=== PATIENT | female | born 1990 | race Caucasian/White ===

== ENCOUNTER 2018-12-23 11:53 | Emergency (ER) | payer MEDICAID, SELFPAY ==
[2018-12-23 11:54] VITALS: BP 116/69; PULSE 97; RESP 17; TEMP 36.2; O2SAT 99; BMI 28.8
--- NOTE | 2018-12-23 12:57 | RAD_ITS ---
STUDY: X-RAY - PELVIS AND LEFT HIP REASON FOR EXAM: Female, 28 years old. Chronic left hip pain. No known injury. TECHNIQUE: 3 views of the pelvis and hip. COMPARISON: None. FINDINGS: There is a non-specific bowel gas pattern. Tubal ligation clips. Normal bilateral iliac wings, sacroiliac joints and visualized sacrum. Normal bilateral superior and inferior pubic rami. Normal pubic symphysis. Normal bilateral ischial tuberosities. Normal visualized femoral head. Normal acetabulum. Normal hip joint. RAD/HIP, UNI W/ Pelvis 2-3 Views IMPRESSION: No acute finding. Electronically Signed: Que Allison MD at 13:19 EDT , Service support ,
--- NOTE | 2018-12-23 12:58 | ED.VISSUMM ---
- ER Visit Summary Date of Service: 12/23/18 Chief Complaint: Atraumatic left hip pain History of Present Illness: The patient is a 28 F no significant past medical history. States she is had atraumatic left hip pain intermittent for last 2 years. At times it flares up at times is not bad. She denies any fever or chills. No prior hip surgery. Sometimes when she walks it seems aggravated. States one time she had x-rays done at [facility] which they stated that was unremarkable. She is never had an MRI. Physical Examination: Young female no acute distress. Vital signs stable afebrile. H EENT exam unremarkable. Lungs clear to auscultation. Heart regular rhythm no murmur. Abdomen soft nontender. Extremities moves all 4. Calves are nontender without edema or cords. She is moving all 4 extremities. She has full range of motion of both hips and knees ankles and feet. Dorsi plantarflexion intact. Left hip is not red or swollen. There is no signs of bony deformity or dislocation. Back the spine and SI joints are nontender. Neurologically she is awake and alert. Has normal motor strength and sensation all extremities. Test Results: Left hip and pelvis x-rays, 3 views, shows no acute abnormality. Normal bony structures. I did go over the films with the patient and family. Emergency Department Course and Treatment: Acute on chronic left hip pain. Unremarkable exam. Treatment Plan: Repeat exam at 1342 no change. Tylenol Motrin for pain. Follow-up if not improving. May need advanced imaging. Disposition: Discharge Impression: Acute on chronic atraumatic left hip pain of uncertain etiology This note was generated with [employer] dictation software. It may contain incorrect words, spelling, and punctuation that were not noted in review of the chart prior to signing ED Disposition - Plan for ED Patient: Referrals: NOT,DEFINED [NON-STAFF] -
--- NOTE | 2018-12-23 13:42 | ED.DEP ---
ED Disposition - Plan for ED Patient: Disposition: Home or Assisted Living Referrals: Peterson Guzman MD [STAFF PHYSICIAN] - As soon as possible Additional Instructions: Tylenol and Motrin for pain. Follow-up with local physician if not improving. If not getting better he may need additional imaging. But your x-rays today were normal.
== END 2018-12-23 13:50 | disposition home or self-care (01) ==
PROVIDERS: Emergency Provider Emergency Medicine
DX: M25.552 Pain in left hip (principal); G89.29 Other chronic pain; Z72.0 Tobacco use
CPT/HCPCS: 73502; 99282

== ENCOUNTER → 2019-02-18 | Outpatient (CLI) | payer MEDICAID, SELFPAY ==
[2019-02-22 13:28] LABS: HPV Reflexed? NOT INDICATED
== END | disposition home or self-care (01) ==
LOC: LABSPEC 02-19 10:13
PROVIDERS: Visit Provider Obstetrics & Gynecology
DX: Z12.4 Encounter for screening for malignant neoplasm of cervix (principal)
CPT/HCPCS: 88175; G0145

== ENCOUNTER → 2019-03-11 10:46 | Outpatient (CLI) | payer MEDICAID, SELFPAY ==
--- NOTE | 2019-03-11 16:15 | EMB_PTH ---
PATIENT: MOY JUAREZ LOC: [facility] U#:[id number] AGE/SX: 34/F ROOM: RE03/11/[address]: Dr. Gavin Roberts MD : 1990 BED: DIS: SPEC #: [id number] RECD: 03/12/19 10:35 STATUS: MEI REMckenzie #: [id number] CHECO: 03/11/19 16:[address]: Gavin Roberts DEPT: SURGICAL PATHOLOGY RECD BY: Tyler Mccrary ENTERED: 03/12/19 12:23 SP TYPE: ENDOM BX/C ENDY DR: No Primary Care Phys Tissues: Endometrium, NOS Procedures: Surgery Specimen Level IV HEADER OPERATION: Endometrial biopsy PRE-OP DIAGNOSIS: N92.0 TISSUE SUBMITTED: Endometrial biopsy MICROSCOPIC DIAGNOSIS Endometrial biopsy: Proliferative endometrium. SJ:cinthia 03/13/19 MICROSCOPIC DESCRIPTION Slides are reviewed. GROSS DESCRIPTION Received in fixative is one container labeled with the patient's name and designated endometrial biopsy. The specimen consists of multiple irregular and elongated fragments of light pink-maurer soft tissue that in aggregate measure 2.5 x 2 x 0.2 cm. The specimen is totally submitted in one cassette. / AM:cinthia 03/12/19 TC:4 CPT: 00596
== END ==
PROVIDERS: Referring Provider Obstetrics & Gynecology; Visit Provider Obstetrics & Gynecology
DX: N92.0 Excessive and frequent menstruation with regular cycle (principal)
CPT/HCPCS: 88305

== ENCOUNTER 2019-03-31 08:37 | Day surgery (SDC) | payer MEDICAID, SELFPAY ==
[2019-03-26 16:16] LABS: Hematocrit 37.9 % (37-47); Hemoglobin 12.2 g/dL (12.0-15.0); Mean Corp Hgb Conc 32.2 g/dL (32-36); Mean Corpuscular Volume 86.9 fL (81-99); Mean Platelet Vol. 10.6 fl (6.2-12.0); Platelet Count 233 K/mm3 (150-450); RBC Distribution Width CV 13.2 % (11.6-14.6); RBC Distribution Width SD 41.9 fl (35.1-43.9); Red Blood Count 4.36 M/mm3 (4.2-5.4); White Blood Count 7.1 K/mm3 (4.4-11.0)
[2019-03-26 16:47] LABS: Thyroid Stim Hormone (TSH) 0.72 uIU/mL (0.358-3.74)
--- NOTE | 2019-03-30 13:08 | HP.PCM_ITS ---
History and Physical Date of Admission: 03/31/19 Surgical History and Physical Ana Zaldivar, a 28 year old female 3 0 2 0 3, presents for HTA, Hysteroscopy and D and C on March 31, 2019 at 2:30. -- Menorrhagia -- Extremely heavy menses since her last delivery. Pelvic ultrasound and endometrial biopsy OK. Had tubal for control. MEDICATIONS HISTORY: Patient is also takin. No Meds ALLERGIES: NKDA Infections - Chicken pox Illnesses - none Accidents - None Hospitalizations - see surgery Review of Systems: GENERAL - Denies fever, or chills SKIN - Denies skin changes EYES - Denies visual changes EARS - Denies difficulty hearing NOSE - Denies nasal congestion or bleeding MOUTH - Denies sore throat or difficulty swallowing NECK - Denies pain or swelling RESPIRATORY - Denies shortness of breath or wheezing CARDIOVASCULAR - Denies palpitations or chest pain GASTROINTESTINAL - Denies nausea, vomiting, diarrhea, constipation GENITOURINARY - Denies dysuria, frequency of urination, incontinence of urine MUSCULOSKELETAL - Denies joint or muscle pain NEUROLOGICAL - Denies localized numbness or weakness PSYCHIATRIC - Denies depression or anxiety ENDOCRINE - Denies heat or cold intolerance, weight loss or gain HEMATO-IMMUNOLOGIC - Denies excesive bleeding with cuts SOCIAL HISTORY: Alcohol Use - denies drinking Smoking - Smokes--advised to quit less than 1 ppd Diet - no special diet Lifestyle - moderate stress lifestyle and single Exercise - minimal Seat Belt Use - most of the time Employer - [employer]formerly [employer] Job Description - [employer] Illicit Drug Use - None Sexual Activity - ACTIVE [employer] Children Name(s) - Max (12), Berhane (16), Justine Baer(17) Control - Prior Tubal FAMILY HISTORY: non-contributory MENSTRUAL HISTORY: LMP Known?- YesAmount/Duration - 5 days, Regularity - Regular, Frequency - monthly days, LMP - 03/26/19, Age Onset Menarche - 14 PAST PREGNANCIES: Total Pregnancies - 5; Full Term Pregnancies - 3; Premature - 0; Abortions, Induced - 0; Abortions, Spontaneous - 1; Ectopics - 1; Multiple Births - 0; Living Children - 3 SURGICAL HISTORY: 1. 07/22/2012 (R) Hand Surgery 2. (L) Wrist Surgery x 2 3. 02/25/2011 Diagnostic lap, Rt fallopian tube ablation ; Dr. Katheryn Harris - ruptured ectopic 4. 11/05/2011 ; Blanca Patrick M.D. 5. 03/11/2014 LEEP ; Dr. Katheryn Harris 6. 06/26/2016 /tubal ; Gavin Roberts M.D. 7. 04/30/2015 ; Blanca Patrick M.D. PHYSICAL EXAM BP- 136/80 Sitting, Right arm, regular cuff Weight- 200 lbs Height- 66 inch BMI:32.35 CONSTITUTIONAL - NAD, well nourished, and well developed SKIN - No rash, lesions, or ulcers HEENT - Normocephalic, PERRLA, EOMI NECK - No nodes, no nuchal rigidity and thyroid normal size and texture LYMPH NODES - Palpation of lymph nodes in neck and groins within normal limits LUNGS - CTA x2 without wheezes, crackles or rales CARDIAC - Regular rate and rhythm without rubs, murmurs, or gallops BREAST - No dominant masses, no tenderness, no axillary adenopathy, no nipple discharge, no skin changes ABDOMEN - Without hepatosplenomegaly, distention, masses, rebound, or guarding; normal bowel sounds; no hernias EXTREMITIES - No edema or calf tenderness NEUROLOGICAL - Cranial nerves II-XII grossly intact PSYCHIATRIC - A and O to time, place, person, mood and affect External Genital Vagina - non-tender without lesions Urethra/Urethral Meatus - non-tender Bladder - non-tender Vagina - vaginal davis are pink and moist without loss of rugae and no evidence of atropy Cervix - without cervical motion tenderness and has normal size and features without evident lesions Uterus - multiparous size 6 cm & wt 75-125 g Adnexa - clear without masses or tenderness ASSESSMENT/PLAN: Menorrhagia Discussed options for treatment including OCPs, LARC, or ablation. Desires the ablation. Plan Dx H/S, D and C and HTA. Discussed RBAs and all questions answered.
[2019-03-31] VITALS (9 sets, daily range): BP systolic 84–119; BP diastolic 66–84; PULSE 51–81; RESP 14–16; TEMP 36.1–36.8; O2SAT 96–100; BMI 30.2
[2019-03-31 09:31] LABS: Internal QC Validated? YES +Cl - CLEAR BKGD; Pregnancy, Urine Negative Negative
[2019-03-31] MEDS: Lactated Ringers 1,000 ML 100 ML IV (09:41)
--- NOTE | 2019-03-31 10:35 | EMB_PTH ---
PATIENT: MOY JUAREZ LOC: [facility] [place] U#:[id number] AGE/SX: 28/F ROOM: RE03/31/[address]: Dr. Gavin Roberts MD : 1990 BED: DIS: 03/31/2019 SPEC #: [id number] RECD: 04/01/19 10:07 STATUS: MEI CHINEDU #: [id number] CHECO: 03/31/19 10:[address]: Gavin Roberts DEPT: SURGICAL PATHOLOGY RECD BY: Kezia Roman ENTERED: 04/01/19 11:01 [facility] TYPE: ENDOM BX/C ENDY DR: Out of [facility] Doctor Tissues: Endometrium, NOS Procedures: Surgery Specimen Level IV HEADER OPERATION: Hysteroscopy, D&C hydro ablation PRE-OP DIAGNOSIS: Menorrhagia TISSUE SUBMITTED: Endometrial curettings MICROSCOPIC DIAGNOSIS Endometrial curettings: Proliferative endometrium. SJ:carmen 04/02/19 MICROSCOPIC DESCRIPTION Slides are reviewed. GROSS DESCRIPTION Received is one container labeled with the patient name and designated endometrial curettings. The specimen consists of multiple irregular fragments of light maurer soft tissue that in aggregate measure 5.5 x 3 x 0.2 cm. The specimen is totally submitted in two cassettes. / AM:sp 04/01/19 TC: 4 CPT:55722
--- NOTE | 2019-03-31 11:56 | PCM.OPRPT ---
Report of Operation Date of Procedure: 03/31/19 Pre-Operative Diagnosis: Menorrhagia Post-Operative Diagnosis: Menorrhagia Surgery/Procedure Performed:: Diagnostic Hysteroscopy, Dilation and Curettage, Hydrothermal Ablation Description of Surgical Findings:: 8 cm endometrial cavity without polyps or fibroids Type of Anesthesia:: General - Endotracheal Anesthesiologist: Tarsha Thomson Estimated Blood Loss (mL): Minimal Fluids Replaced: Crystalloid Description of Procedure: Surgeon: Gavin Roberts MD, FACOG Indication: This is a 28 year old patient who has been having problems with extremely heavy menses. She had a prior tubal ligation. Conservative measures have not been helpful. Endometrial sampling was benign and pelvic ultrasound showed that ablation may be helpful. Pt has been counseled regarding the risks, benefits and alternatives of this procedure and all questions answered. She understands that only about half of patients will have amenorrhea after this procedure. Procedure: Patient taken to the operating room where after induction of general anesthesia the patient was prepped and draped in the usual sterile fashion. Bladder was drained of urine with a catheter. Anterior cervix grasped and cervix was dilated to about 17 [place]kin[place] size. Hysteroscopic hydrothermal ablation (HTA) unit was place in the cervix and the above findings were noted. HTA unit was removed and the uterus was gently curetted removing all contents. An HTA ablation cycle was then carried out at about 90 degrees Centigrade for 10 minutes with virtually no fluid loss during the procedure. After an appropriate cool down the HTA unit was removed with minimal bleeding noted. The patient tolerated the procedure well and was taken to the recovery room in satisfactory condition. Sponge, instruments and needle counts were all correct. There were no apparent complications of the surgery. Cefotan 2 gms IV was given prior to the procedure. Estimated Blood Loss: Minimal Specimen to Pathology: Endometrial Curettings Grafts/Implants Used: None - Complications None - Admit VTE Documentation VTE Present on Admission: Yes VTE Mechan Device Prophylaxis: SCD's
--- NOTE | 2019-03-31 11:59 | DCINST_ITS ---
Discharge Diet: No Restrictions Discharge Activity: Return to Normal Activity, May not drive while taking narcotic pain medications., May Shower, May Take a Tub Bath May resume sexual activity in: 4 weeks Call your doctor if you observe: Fever of 101 or Higher, Inability to urinate, Inability to have a bowel movement, Using more than one pad per hour Allergies/Adverse Reactions: Allergies No Known Allergies Allergy (Verified 03/24/19 14:11) Medications to take at Discharge Oxycodone [Oxyir] 5 mg PO Q6H PRN PRN 7 Days #10 tablet 03/31/19 Primary Care Physician: HARMONY SCHULTE [Other] Test Results: Test results from this visit will be discussed in further detail at your follow- up appointment, if applicable. Please Follow Up With: Gavin Roberts MD When: 2 to 3 weeks
== END 2019-03-31 14:00 | disposition home or self-care (01) ==
LOC: SDC 08:40 → AC 08:46
PROVIDERS: Anesthesiology; Referring Provider Obstetrics & Gynecology; Visit Provider Obstetrics & Gynecology
PROC: 0U5B8ZZ Destruction of Endometrium, Via Natural or Artificial Opening Endoscopic (ICD-10-PCS; CPT 58563; principal; 2019-03-31 10:20)
DX: N92.0 Excessive and frequent menstruation with regular cycle (principal); F17.200 Nicotine dependence, unspecified, uncomplicated
CPT/HCPCS: 00952; 58563; 36415; 81025; 84443; 85027; 86850; 86900; 86901; 88305; J7120; J2405

== ENCOUNTER 2023-05-13 18:09 | Emergency (ER) | payer MEDICAID, SELFPAY ==
[2023-05-13 18:10] VITALS: BP 135/88; PULSE 97; RESP 16; TEMP 36.7; O2SAT 100; BMI 28.0
--- NOTE | 2023-05-13 18:26 | CT_ITS ---
STUDY: CT ABDOMEN AND PELVIS WITHOUT CONTRAST REASON FOR EXAM: Female, 32 years old. Pain RADIATION DOSAGE (If Supplied By Facility): CTDIvol = ( 10.76 ) mGy, DLP = ( 540.48 ) mGycm TECHNIQUE: Transaxial images were obtained from the dome of the diaphragm to the symphysis pubis without oral contrast, and without intravenous contrast. Sagittal and coronal images were reconstructed. Individualized dose optimization techniques were used for this CT. COMPARISON: None. FINDINGS: The visualized lung bases are unremarkable. The visualized portions of the heart are within normal limits. Normal liver. Normal gallbladder and extrahepatic biliary system. Normal spleen. Normal pancreas. Normal bilateral adrenal glands. Normal right kidney. Normal left kidney. Normal visualized stomach. Normal small intestine. Normal colon. The appendix is visualized and appears normal. Normal abdominal aorta. Normal inferior vena cava. Normal retroperitoneum. Normal urinary bladder. Normal abdominal wall. Normal osseous structures. CT/Abdomen/Pelvis without Cont IMPRESSION: No evidence of acute intra-abdominal process or focal inflammation. Normal appendix. Electronically Signed: Paul Ruiz DO at 19:40 [facility] ,
--- NOTE | 2023-05-13 18:31 | EDS_ITS ---
HPI History of Present Illness Chief Complaint: Nausea/Vomiting Narrative Narrative: 32-year-old female who denies significant past medical history presents with nausea, vomiting, and back pain. She states that she was not sure if she had overdone it by doing her chores yesterday and developed lower back pain that somewhat worse with movement. She states that she was over at her mom's house, and had nausea and vomiting at least 3 times. When she was driving home, she did not feel quite right and states that her hands locked up and her knee on the left/lower leg also locked up. She had to thread puller and sit. This lasted for about 10 minutes. Additionally, she relates history that every morning she wakes up and has vomiting and this has been going on for the last month or longer. She is to have abdominal pain with this, but really does not. She also has loose stool in the morning. She was concerned because of her spasming of her hands locking up and of her left leg. PFSH PFSH Home Medications amoxicillin 875 mg-potassium clavulanate 125 mg tablet 1 tab PO Q12H #14 tabs 04/26/23 [Rx Last Taken Unknown] ondansetron 4 mg disintegrating tablet 4 mg PO Q6H PRN nausea and vomiting #15 tabs 05/13/23 [Rx Last Taken Unknown] Allergy/AdvReac Type Severity Reaction Status Date / Time No Known Allergies Allergy Verified 04/26/23 09:05 Social History Smoking Status: Current every day smoker tobacco type: cigarettes ROS ROS ED ROS Narrative Constitutional: No fever, no chills. HEENT: No sore throat. No neck pain. No loss of vision. No rhinorrhea. Cardiovascular: No chest pain. No palpitations. No pedal edema. Respiratory: No cough, no shortness of breath. Abdominal: No abdominal pain. Positive nausea and vomiting today. Later learned that she has been having nausea and vomiting every morning along with loose stools. Genitourinary: No dysuria. No hematuria. Musculoskeletal: Muscle spasms of bilateral hands and left lower extremity. Bilateral low back pain. Neurologic: No headaches. No dizziness. No lightheadedness. Skin: No rash. No change in color. Psychiatric: No depression. No anxiety. EXAM Physical Exam Narrative Exam Narrative: Afebrile. Vital signs noted. HEENT: Normocephalic. Atraumatic. PERRL, EOMI. Neck soft and supple. No point tenderness or step off. Cardiovascular: Regular rate and rhythm. No murmurs, rubs, or gallops appreciated. Respiratory: No tachypnea. Lungs clear to auscultation bilaterally. Gastrointestinal: Abdomen soft, nontender, with normoactive bowel sounds. No rebound or guarding. No CVA tenderness to percussion. Neurological: Awake. Alert. Nonfocal, nonlateralizing. Skin: No rash. Normal color. No pallor. Musculoskeletal: No pedal edema. Full range of motion extremities. Const Vital Signs: 05/13/23 18:10 Temperature 98.1 F Temperature Source Temporal Pulse Rate 97 Respiratory Rate 16 Blood Pressure 135/88 H Blood Pressure Mean 103 Pulse Ox 100 Oxygen Delivery Method Room Air MDM MDM MDM Narrative Medical decision making narrative: In regard to her bilateral carpal spasms, she may be dehydrated, or have hypokalemia. Additionally, she may have been hyperventilating. Regarding her nausea and vomiting, in the differential is pancreatitis versus bowel obstruction. I have low suspicion for either of these because the history and physical does not really support it. Additionally, her back pain may be more right-sided greater than left. While this may be musculoskeletal in the differential would also be ureterolithiasis. I do feel CT imaging without contrast is indicated. I will also obtain a CBC, CMP, and lipase to help rule out pancreatitis and dehydration or an electrolyte abnormality such as hypokalemia. She was bolused normal saline 1 L intravenously and administered ondansetron as well. I do not feel an hCG is warranted as she had a uterine ablation and does not have menstrual periods. I reviewed her laboratory work and she has normal white count of 5.4, hemoglobin stable at 11.8, platelet count normal at 190. Sodium is normal at 139 but she has a low potassium of 3.0 which was replaced orally with 40 mill equivalents. Chloride slightly low at 108. BUN normal at 8 with creatinine 0.58. Urinalysis was reviewed and is negative for infection but she had [address] of the abdomen pelvis was obtained without contrast and there is no acute process. I reviewed the radiology report and there is a normal appendix. At this point in time, I feel she be discharged to follow-up with her primary care provider. She was feeling mildly improved, but tried to drink something and felt nauseated again. I wrote her prescription for Zofran she was given an additional dose here in the emergency department. I feel she can be discharged to follow-up with her primary care provider. Return instructions to the emergency department were reviewed. Disposition is discharged home in stable condition. Lab Data Attestation: I reviewed the patient's lab results. Labs: Laboratory Results - last 24 hr 05/13/23 05/13/23 18:42 20:25 WBC 5.4 RBC 3.90 L Hgb 11.8 L Hct 35.3 L MCV 90.5 MCH 30.3 MCHC 33.4 RDW Std Deviation 39.8 RDW Coeff of Jacobo 12.0 Plt Count 190 MPV 9.9 Immature Gran % (Auto) 0.400 Neut % (Auto) 81.1 H Lymph % (Auto) 7.3 L [place] % (Auto) 10.8 H Eos % (Auto) 0.2 Baso % (Auto) 0.2 Absolute Neuts (auto) 4.3 Absolute Lymphs (auto) 0.39 L Nucleated RBC % 0 Differential Comment SCANNED Sodium 139 Potassium 3.0 L Chloride 108 H Carbon Dioxide 26.0 Anion Gap 5 BUN 8 Creatinine 0.58 Estim Creat Clear Calc 159.49 Est GFR (MDRD) Af Amer 154 Est GFR (MDRD) Non-Af 127 BUN/Creatinine Ratio 13.7 Glucose 97 Calcium 9.4 Total Bilirubin 0.40 AST 10 L ALT 13 Alkaline Phosphatase 48 Total Protein 6.9 Albumin 3.9 Globulin 3.0 Albumin/Globulin Ratio 1.3 Lipase 24 Urine Color Yellow Urine Clarity Clear Urine pH 8.0 Ur Specific Gamaliel 1.015 Urine Protein 30 H Urine Glucose (UA) Normal Urine Ketones 150 A* Urine Occult Blood 10 H Urine Nitrite Negative Urine Bilirubin Negative Urine Urobilinogen 1 H Ur Leukocyte Esterase 25 H Urine RBC 0 SEEN Urine WBC 0 SEEN Ur Squamous Epith Cells 0-5 SEEN Urine Bacteria 0 SEEN Urine Mucus 0 SEEN Radiography Diagnostic Testing: Clinical Impression(s) from Imaging Studies Abdomen/Pelvis CT 05/13/23 18:26 IMPRESSION: No evidence of acute intra-abdominal process or focal inflammation. Normal appendix. Electronically Signed: Paul Ruiz DO at 19:40 EST , Discharge Plan Triage Chief Complaint: Nausea/Vomiting Other Complaint: Back ED Provider: Manohar Rios Dx/Rx/DC Orders Clinical Impression: Back pain, Nausea and vomiting, Hypokalemia Instructions: ED Back Pain (Acute or Chronic), ED Hypokalemia, ED Vomiting (Adult) Prescriptions: New ondansetron 4 mg tablet,disintegrating 4 mg PO Q6H PRN (Reason: nausea and vomiting) Qty: 15 0RF No Action amoxicillin-pot clavulanate 875-125 mg tablet 1 tab PO Q12H Qty: 14 0RF Stand Alone Forms: ED Work / School Excuse Primary Care Provider: Care Physician,No Primary Referrals: Olman Avila MD [Med Staff - Active Staff] - 3-5 Days if not improving NOT,DEFINED [Non-Staff] - Disposition Disposition: Home, Self Care Discharge Date/Time: 05/13/23 21:38
[2023-05-13] MEDS: 0.9% Normal Saline (1000mL) 1,000 ML 1000 ML IV (18:40)
[2023-05-13] MEDS: Ondansetron 4 MG/2 ML Vial IV ×2 (18:40→21:16)
--- OUTSIDE RECORDS SUMMARY | 2023-05-13 18:41 | XMS RPT_ITS | CCD ---
Author Name Unknown Address [email or web address] [place] [address] Organization [facility] Care Team Providers Care Staff Analyst Name Role Phone Free, Text Entry Unavailable Unavailable Christophe, Rhonda Unavailable Unavailable EPPS, FRANCISCA A Consulting Unavailable EPPS, FRANCISCA A Referring Unavailable AMI AVLLEJO Admitting Unavailable AMI VALLEJO Attending Unavailable AMI VALLEJO Primary Care Unavailable PROVIDER, UNKNOWN Consulting Unavailable PROVIDER, UNKNOWN Consulting Unavailable PROVIDER, UNKNOWN Consulting Unavailable HABMARIELLA AYALA Admitting Unavailable EPPS, FRANCISCA A Consulting Unavailable MARIELLA GRECO Attending Unavailable MARIELLA GRECO Primary Care Unavailable PROVIDER, UNKNOWN Consulting Unavailable PROVIDER, UNKNOWN Consulting Unavailable PROVIDER, UNKNOWN Consulting Unavailable MICH, FRANCISCA A Consulting Unavailable JOHN, DR MARYBETH Cunha Admitting Unavaila ble JOHN, DR MARYBETH Cunha Attending Unavaila ble JOHN, DR MARYBETH Cunha Primary Care Unavaila ble PROVIDER, UNKNOWN Consulting Unavailable PROVIDER, UNKNOWN Consulting Unavailable PROVIDER, UNKNOWN Consulting Unavailable MICH, FRANCISCA A Consulting Unavailable JOHN, DR MARYBETH Cunha Admitting Unavaila ble EPPS, FRANCISCA Borges Referring Unavailable JOHN, DR MARYBETH Cunha Attending Unavaila ble JOHN, DR MARYBETH Cunha Primary Care Unavaila ble PROVIDER, UNKNOWN Consulting Unavailable PROVIDER, UNKNOWN Consulting Unavailable PROVIDER, UNKNOWN Consulting Unavailable MICH, FRANCISCA A Consulting Unavailable AMI VALLEJO Admitting Unavailable AMI VALLEJO Attending Unavailable AMI VALLEJO Primary Care Unavailable PROVIDER, UNKNOWN Consulting Unavailable PROVIDER, UNKNOWN Consulting Unavailable PROVIDER, UNKNOWN Consulting Unavailable EPPS, FRANCISCA A Consulting Unavailable HABERMARIELLA REESE Admitting Unavailable HABMARIELLA AYALA Attending Unavailable MARIELLA GRECO Primary Care Unavailable PROVIDER, UNKNOWN Consulting Unavailable PROVIDER, UNKNOWN Consulting Unavailable PROVIDER, UNKNOWN Consulting Unavailable Jannet Acosta Unavailable Unavailable Medications Current Medications Medication Drug Class(es) Dates Sig (Normalized) Sig (Original) amoxicillin 500 mg oral tablet (2 sources) Penicillin-class Antibacterial Start: 08-27-2021 End: 09-05-2021 take 1 tablet by mouth twice daily amoxicillin 500 mg oral tablet ; 1 tab(s) orally 2 times a day Quantity: 20 Refills: 0 Ordered: 27-Aug-2021 Jannet Acosta Start: 27-Aug-2021 End: 05-Sep-2021 Generic Substitution Allowed Comments: Finish all this medication unless otherwise directed by prescriber. Problems Active Problems Problem Classification Problem Date Documented Da te Episodic/Chronic Headache; including migraine (1 source) Headache; including migraine; Translations: [Headache, unspecified] Onset: 05-18-2020 Other upper respiratory disease (5 sources) Pain in throat 02-26-2021 Episodic Past or Other Problems Problem Classification Problem Date Documented Da te Episodic/Chronic Nausea and vomiting (1 source) Nausea; Translations: [Nausea] Onset: 05-18-2020 Episodic Other nervous system disorders (1 source) Other disturbances of smell and taste; Translations: [Other disturbances of smell and taste] Onset: 05-18-2020 Episodic Residual codes; unclassified (3 sources) Chills (without fever); Translations: [Chills (without fever)] Onset: 05-18-2020 Episodic Spondylosis; intervertebral disc disorders; other back problems (1 source) Dorsalgia, unspecified; Translations: [Dorsalgia, unspecified] Onset: 05-18-2020 Episodic Results Test Name Value Interpretation Reference Range Facil ity Vital Signs Date Time Vital Sign Value Performing Clinician Facility 08-27-2021 12:45-0400 Body height 165.1 cm Text Entry Free [facility] 08-27-2021 12:45-0400 Body temperature 97.7 [degF] Text Entry Free [facility] 08-27-2021 12:45-0400 Diastolic blood pressure 83 mm[Hg] Text Entry Free [facility] 08-27-2021 12:45-0400 Heart rate 86 /min Text Entry Free [facility] 08-27-2021 12:45-0400 Respiratory rate 16 /min Text Entry Free [facility] 08-27-2021 12:45-0400 SaO2% (BldA) [Mass fraction] 97 % Text Entry Free [facility] 08-27-2021 12:45-0400 Systolic blood pressure 126 mm[Hg] Text Entry Free [facility] 02-26-2021 12:52-0400 Body height 167.6 cm Text Entry Free [facility] 02-26-2021 12:52-0400 Body temperature 98.06 [degF] Text Entry Free [facility] 02-26-2021 12:52-0400 Diastolic blood pressure 80 mm[Hg] Text Entry Free [facility] 02-26-2021 12:52-0400 Heart rate 77 /min Text Entry Free [facility] 02-26-2021 12:52-0400 Respiratory rate 18 /min Text Entry Free [facility] 02-26-2021 12:52-0400 SaO2% (BldA) [Mass fraction] 99 % Text Entry Free [facility] 02-26-2021 12:52-0400 Systolic blood pressure 138 mm[Hg] Text Entry Free [facility] Encounters Encounter Date Encounter Type Care Provider Facility Start: 08-27-2021 End: 08-27-2021 Emergency department patient visit Jannet Acosta [facility] Start: 03-25-2021 End: 03-25-2021 ambulatory [facility] Start: 02-26-2021 End: 02-26-2021 Emergency department patient visit Rhonda Saeed [facility] Start: 10-01-2020 End: 10-01-2020 Emergency department patient visit VALLES MINES Katerina [facility] Start: 06-27-2020 End: 06-27-2020 Emergency department patient visit FRANCISCA Katerina [facility] Start: 06-20-2020 End: 06-20-2020 Emergency [facility] Start: 05-27-2020 End: 05-27-2020 Emergency department patient visit FRANCISCA Katerina [facility] Start: 05-18-2020 End: 05-18-2020 ambulatory FRANCISCA Johsnon [facility] Payers Date Payer Category Payer Unknown [id number] 1991 Unknown [id number] 1991 Unknown [id number] 1991 Unknown [id number] 1991 Unknown [id number] 1991 Unknown [id number] Unknown [facility] Unknown [id number] Social History Date Type Detail Facility [facility] Tobacco smoking consumption unknown [facility] Summary Purpose Family History No Family History Records FoundNo Family History Records FoundNo Family History Records FoundNo Family History Records Found Advance Directives No Advanced Directives Records FoundNo Advanced Directives Records FoundNo Advanced Directives Records FoundNo Advanced Directives Records Found Additional Source Comments INFORMATION SOURCE (unrecogn ized section and content) DATE CREATED AUTHOR AUTHOR'S ORGANIZ ATION 03/30/[address] [facility] DATE CREATED AUTHOR AUTHOR'S ORGANIZ ATION 08/28/2021 [facility] DATE CREATED AUTHOR AUTHOR'S ORGANIZ ATION 08/31/2021 [facility] <item><item> Privacy Markings (unrecogniz ed section and content) Section Author: Cher Sheriff PROHIBITION ON REDISCLOSURE OF CONFIDENTIAL INFORMATION This notice accompanies a disclosure of information concerning a client made to you with the consent of such client. Section Author: Cher Sheriff PROHIBITION ON REDISCLOSURE OF CONFIDENTIAL INFORMATION This notice accompanies a disclosure of information concerning a client made to you with the consent of such client. FOR RECORDS PERTAINING TO PATIENTS WHO ARE OR HAVE BEEN ENROLLED IN A CHEMICAL DEPENDENCY/SUBSTANCEABUSE PROGRAM, SOME INFORMATION MAY BE OMITTED. This clinical summary was aggregated from multiple sources. Caution should be exercised in using it in the provision of clinical care. This summary normalizes information from multiple sources, and as a consequence, information in this document may materially change the coding, format and clinical context of patient data. In addition, data may be omitted in some cases. CLINICAL DECISIONS SHOULD BE BASED ON THE PRIMARY CLINICAL RECORDS. [email or web address] provides no warranty or guarantee of the accuracy or completeness of information in this document.
[2023-05-13 18:51] LABS: Absolute Lymphocyte Count 0.39 X10^3/uL (0.83-4.51); Absolute Neutrophil Count 4.3 X10^3/uL (2.0-7.7); Basophil# 0.01 X10^3/uL; Basophil% 0.2 % (0-1); Eosinophil# 0.01 X10^3/uL; Eosinophils% 0.2 % (0-5); Hematocrit 35.3 % (37-47); Hemoglobin 11.8 g/dL (12.0-15.0); Lymphocyte # 0.39 X10^3/ul (0.83-4.51); Lymphocyte % 7.3 % (19-41); Mean Corp Hgb Conc 33.4 g/dL (32-36); Mean Corpuscular Hgb 30.3 pg (27.0-32.0); Mean Corpuscular Volume 90.5 fL (81-99); Mean Platelet Vol. 9.9 fl (6.2-12.0); Monocyte# 0.58 X10^3/uL; Monocyte% 10.8 % (0-10); NRBC Flagged by Analyzer 0 % (0-5); Neutrophil # 4.34 X10^3/uL (2.7-7.7); Neutrophil % 81.1 % (47-70); POSITIVE DIFFERENTIAL YES; Platelet Count 190 K/mm3 (150-450); RBC Distribution Width SD 39.8 fl (35.1-43.9); White Blood Count 5.4 K/mm3 (4.4-11.0)
[2023-05-13 18:53] LABS: Differential Indicated SCAN CRITERIA MET
[2023-05-13 18:54] LABS: Differential Comment SCANNED
[2023-05-13 19:05] LABS: ALB/GLOB Ratio 1.3 RATIO (0.9-2.4); AST(SGOT) 10 U/L (15-37); Alanine Aminotransfer ALT/SGPT 13 U/L (13-56); Albumin, Serum 3.9 g/dL (3.2-5.0); Alkaline Phosphatase 48 U/L (45-117); Anion Gap 5 (5-15); BUN 8 mg/dL (7-18); BUN/Creat Ratio 13.7 RATIO (10-20); Calcium,Total 9.4 mg/dL (8.5-10.1); Chloride 108 mmol/L (98-107); Creatinine, Serum 0.58 mg/dL (0.55-1.02); EST Glomerular Filtration Rate 127 mL/min (>60); Est Glom Filt Rate - Afr Amer 154 mL/min (>60); Estimated Creatinine Clearance 159.49 ml/min; Glucose 97 mg/dL (74-106); Lipase 24 U/L (13-75); Protein, Total 6.9 g/dL (6.4-8.2); Sodium Level 139 mmol/L (136-145)
[2023-05-13 20:31] LABS: Bacteria 0 SEEN /hpf (None Seen); Mucous, Urine 0 SEEN /hpf (<or=2+); Red Blood Cells-Urine 0 SEEN /hpf (0-5); White Blood Cells 0 SEEN /hpf (0-5)
[2023-05-13 20:46] LABS: Color, Urine Yellow (Yellow); Glucose, Dipstick Normal (Normal); Leukocyte Esterase-Dipstick 25 /ul (Negative); Nitrite-Dipstick Negative (Negative); Occult Blood-Urine 10 /ul (Negative); Protein-Dipstick 30 mg/dl (Negative); Specific Gravity, Urine 1.015 (1.002-1.030); Urine Bilirubin Dipstick Negative (Negative); Urine Clarity Clear (Clear); Urine Urobilinogen 1 mg/dl (Normal)
[2023-05-13 20:51] LABS: Ketone-Dipstick 150 mg/dl (Negative)
[2023-05-13 20:53] LABS: Squamous Epithelial Cells - UA 0-5 SEEN /hpf (5-10)
[2023-05-13] MEDS: Potassium Chloride Oral Tablet 20 MEQ 40 MEQ PO (21:20)
== END 2023-05-13 21:38 | disposition home or self-care (01) ==
PROVIDERS: Emergency Provider Emergency Medicine; Visit Provider Emergency Medicine
DX: M54.9 Dorsalgia, unspecified (principal); R11.2 Nausea with vomiting, unspecified; E87.6 Hypokalemia; F17.210 Nicotine dependence, cigarettes, uncomplicated
CPT/HCPCS: 74176; 80053; 81001; 83690; 85025; 96361; 96374; 96376; 99284; J7030; A4216; J2405

== ENCOUNTER 2024-01-15 16:51 | Emergency (ER) | payer MEDICAID, SELFPAY ==
[2024-01-15 16:54] VITALS: BP 137/85; PULSE 79; RESP 18; TEMP 36.2; O2SAT 100; BMI 28.0
--- NOTE | 2024-01-15 17:24 | CT_ITS ---
STUDY: CT ABDOMEN AND PELVIS WITHOUT CONTRAST REASON FOR EXAM: Female, 33 years old. Kidney Stone RADIATION DOSAGE (If Supplied By Facility): CTDIvol = ( 8.54 ) mGy, DLP = ( 424.52 ) mGycm TECHNIQUE: Transaxial images were obtained from the dome of the diaphragm to the symphysis pubis without oral contrast, and without intravenous contrast. Sagittal and coronal images were reconstructed. Individualized dose optimization techniques were used for this CT. COMPARISON: May 13, 2023. FINDINGS: The visualized lung bases are unremarkable. The visualized portions of the heart are within normal limits. Normal liver. Normal gallbladder and extrahepatic biliary system. Normal spleen. There is a surgical clip in left upper quadrant in the vicinity of the spleen Normal pancreas. Normal bilateral adrenal glands. Normal right kidney. Normal left kidney. Normal visualized stomach. Normal small intestine. Normal colon. There is a surgical clip in the right lower quadrant The appendix is visualized and appears normal. Normal abdominal aorta. Normal inferior vena cava. Normal retroperitoneum. Mildly prominent uterus compressing the dome of the bladder which is incompletely distended and thick walled Normal abdominal wall. Normal osseous structures. CT/Abdomen/Pelvis without Cont IMPRESSION: No acute abnormalities. Specifically, no evidence for renal calculus, obstruction or ureteral calculus. Other incidental findings as above Electronically Signed: Francisco Henderson MD at 18:44 EDT ,
[2024-01-15 17:42] LABS: Absolute Lymphocyte Count 1.78 X10^3/uL (0.83-4.51); Absolute Neutrophil Count 4.1 X10^3/uL (2.0-7.7); Basophil# 0.03 X10^3/uL; Basophil% 0.5 % (0-1); Eosinophil# 0.06 X10^3/uL; Eosinophils% 0.9 % (0-5); Hematocrit 37.9 % (37-47); Hemoglobin 12.2 g/dL (12.0-15.0); Lymphocyte # 1.78 X10^3/ul (0.83-4.51); Lymphocyte % 27.6 % (19-41); Mean Corp Hgb Conc 32.2 g/dL (32-36); Mean Corpuscular Hgb 30.3 pg (27.0-32.0); Mean Platelet Vol. 9.7 fl (6.2-12.0); Monocyte# 0.46 X10^3/uL; Monocyte% 7.1 % (0-10); NRBC Flagged by Analyzer 0 % (0-5); Neutrophil % 63.7 % (47-70); Platelet Count 210 K/mm3 (150-450); RBC Distribution Width CV 11.5 % (11.6-14.6); RBC Distribution Width SD 39.6 fl (35.1-43.9); Red Blood Count 4.03 M/mm3 (4.2-5.4); White Blood Count 6.4 K/mm3 (4.4-11.0)
[2024-01-15 17:49] LABS: Anion Gap 5 (5-15); BUN 10 mg/dL (7-18); BUN/Creat Ratio 16.8 RATIO (10-20); Calcium,Total 9.2 mg/dL (8.5-10.1); Chloride 108 mmol/L (98-107); Creatinine, Serum 0.59 mg/dL (0.55-1.02); EST Glomerular Filtration Rate 124 mL/min (>60); Est Glom Filt Rate - Afr Amer 150 mL/min (>60); Estimated Creatinine Clearance 144.96 ml/min; Glucose 100 mg/dL (74-106); Potassium 3.6 mmol/L (3.5-5.1); Sodium Level 139 mmol/L (136-145)
[2024-01-15 18:01] LABS: Mucous, Urine 0 SEEN /hpf (<or=2+)
--- NOTE | 2024-01-15 18:06 | ED.VIS.FEGU ---
HPI HPI - Female History of Present Illness Chief Complaint: Flank Pain Informant: patient Narrative Narrative: 1 week history intermittent left flank pain sharp in nature. Today was worsening. No urinary symptoms. Reports for the past couple months has had morning nausea vomiting with mucus. No hematemesis. Resolved during the day. Saw PCP office little over a week ago abdominal ultrasound ordered. Got report today there was no gallstones. Denies any abdominal pain. Uterine ablation with tubal ligation in the past. She has irregular menstrual periods. Denies fever or chills. PFSH PFSH Medical History delivery delivered Home Medications ?Medication ?Instructions ?Recorded ?Last Taken ?Type ondansetron 4 mg disintegrating 4 mg PO Q8H PRN PRN Nausea #10 tabs 01/15/24 Unknown Rx tablet Allergy/AdvReac Type Severity Reaction Status Date / Time No Known Allergies Allergy Verified 01/15/24 16:53 Social History Smoking Status: Light Smoker (<10/day) ROS ROS ED Constitutional Constitutional ED: Denies chills, fever(s) or sweats Eyes Eyes: Denies change in vision ENT ENT ED: Denies dysphagia or sore throat Cardiovascular Cardiovascular: Denies chest pain, leg edema, palpitations or racing heartbeat Respiratory/Chest Respiratory/Chest: Denies cough, dyspnea or dyspnea on exertion Gastrointestinal Gastrointestinal: Denies abdominal pain, diarrhea, nausea or vomiting Genitourinary Genitourinary ED: Denies dysuria, hematuria or urinary frequency Musculoskeletal Musculoskeletal: Reports back pain; Denies extremity pain or neck pain Integumentary Denies rash or wounds Neurologic Neurologic: Denies headache(s), paresthesias or weakness EXAM Physical Exam Const Vital Signs: 01/15/24 16:54 01/15/24 17:22 01/15/24 18:52 Temperature 97.1 F L Temperature Source Temporal Pulse Rate 79 70 Respiratory Rate 18 14 Respiratory Effort Normal Blood Pressure 137/85 H Blood Pressure Mean 102 Pulse Ox 100 Oxygen Delivery Method Room Air Positive well nourished and well developed General Appearance ED: well developed and NAD HEENT Reports moist mucous membranes normocephalic and atraumatic Eyes EOMs intact bilaterally and conjunctivae normal General Eye ED: Yes normal appearance of both eyes Neck no lymphadenopathy and supple General: Negative for tenderness Chest Wall Chest: Negative for tenderness Resp normal respiratory effort and normal air movement Effort and Inspection: symmetric chest movement; Negative for respiratory distress Cardio regular rate, regular rhythm and no murmurs Peripheral Pulses: pulses 2+ throughout GI normal to inspection, nondistended, normoactive bowel sounds and non-tender GI Narrative: Negative Wu's or McBurney's tenderness. Palpation: Negative for guarding or rebound tenderness present Back/Spine no thoracic nor lumbar tenderness Back/Spine Narrative: No rash in the flank region. Tender palpation left CVA region. Extremity normal to inspection General Extremety ED: Negative for edema or tenderness General Extremity: Negative for edema Neuro oriented x3 and no sensory deficits noted Sensorium / Orientation: awake and alert Skin no rashes or lesions noted and no wounds MDM MDM MDM Narrative Medical decision making narrative: Interventions / MDM: Differential diagnosis: Flank pain unclear etiology, nausea and vomiting Diagnosis considered but do not suspect: Kidney stone however CT negative. UTI however urine negative. My EKG interpretation: N/A Imaging independently reviewed and interpreted by myself: CT abdomen pelvis: No acute process also read by radiology. External documents reviewed: N/A Test considered but not ordered:N/A ED course: Intermittent left flank pain is severe brought her here. She declines any medications. Renal stone protocol initiated with labs urine and CT scan for further evaluation. Workup negative. No rash in flank for concerns for shingles. Been having morning nausea and vomiting for the last 2 months. None currently. She is tolerating oral fluids and intake at home. Will give her follow-up with GI as an outpatient for further testing if needed. She does have a PCP. She will use Tylenol and avoid NSAIDs due to her GI symptoms. All questions were answered. Re-evaluation: stable Disposition discussed with patient/family/significant other: Patient significant other Case discussed with consulting clinician: N/A This note was generated with [employer] dictation software. It may contain incorrect words, spelling, and punctuation that were not noted in checking the note before signing. Lab Data Attestation: I reviewed the patient's lab results. Labs: Laboratory Results - last 24 hr 01/15/24 01/15/24 17:28 17:55 WBC 6.4 RBC 4.03 L Hgb 12.2 Hct 37.9 MCV 94.0 MCH 30.3 MCHC 32.2 RDW Std Deviation 39.6 RDW Coeff of Jacobo 11.5 L Plt Count 210 MPV 9.7 Immature Gran % (Auto) 0.200 Neut % (Auto) 63.7 Lymph % (Auto) 27.6 Runnels % (Auto) 7.1 Eos % (Auto) 0.9 Baso % (Auto) 0.5 Absolute Neuts (auto) 4.1 Absolute Lymphs (auto) 1.78 Nucleated RBC % 0 Sodium 139 Potassium 3.6 Chloride 108 H Carbon Dioxide 26.0 Anion Gap 5 BUN 10 Creatinine 0.59 Estim Creat Clear Calc 144.96 Est GFR (MDRD) Af Amer 150 Est GFR (MDRD) Non-Af 124 BUN/Creatinine Ratio 16.8 Glucose 100 Calcium 9.2 Serum , Qual NEGATIVE Urine Color Yellow Urine Clarity Clear Urine pH 6.0 Ur Specific [place] 1.020 Urine Protein Negative Urine Glucose (UA) Normal Urine Ketones Negative Urine Occult Blood Negative Urine Nitrite Negative Urine Bilirubin Negative Urine Urobilinogen Normal Ur Leukocyte Esterase Negative Urine RBC 0-5 SEEN Urine WBC 0-5 SEEN Ur Squamous Epith Cells 0-5 SEEN Ur Transition Epith Cell 0-5 SEEN Urine Bacteria 1+ Urine Mucus 0 SEEN Radiography Diagnostic Testing: Clinical Impression(s) from Imaging Studies Abdomen/Pelvis CT 01/15/24 17:24 IMPRESSION: No acute abnormalities. Specifically, no evidence for renal calculus, obstruction or ureteral calculus. Other incidental findings as above Electronically Signed: Francisco Henderson MD at 18:44 EDT Reading Location ID and State: [facility] / [place] Tel , Service support , Discharge Plan Triage Chief Complaint: Flank Pain Other Complaint: Chest Other ED Provider: Jose Velarde Dx/Rx/DC Orders Clinical Impression: Left flank pain, Nausea & vomiting Instructions: ED Flank Pain, Uncertain Cause, ED Vomiting (Adult) Prescriptions: New ondansetron 4 mg tablet,disintegrating 4 mg PO Q8H PRN PRN (Reason: Nausea) Qty: 10 0RF Primary Care Provider: Sindhu Cameron Referrals: Friend,DO Morgan [Med Staff - Active Staff] - 1-2 Weeks Care Physician,No Primary [Non-Staff] - Activity Restrictions/Additional Instructions: CT scan negative. Urine negative. Labs were negative. Unclear etiology for your left flank pain. Been having morning vomiting for past 2 months. Follow-up with GI as an outpatient. Use Zofran as needed. Avoid NSAIDs at this time may use Tylenol every 6 hours as needed for pain. Print Language: Syrian Disposition Disposition: Home, Self Care Discharge Date/Time: 01/15/24 20:20
[2024-01-15 18:08] LABS: Internal QC Validated? YES +Cl - CLEAR BKGD; Pregnancy, Serum, hCG Quali. NEGATIVE Negative; Record Kit Lot#, Serum Preg. 772476
[2024-01-15 18:31] LABS: Color, Urine Yellow (Yellow); Glucose, Dipstick Normal (Normal); Ketone-Dipstick Negative (Negative); Leukocyte Esterase-Dipstick Negative /ul (Negative); Nitrite-Dipstick Negative (Negative); Occult Blood-Urine Negative /ul (Negative); Protein-Dipstick Negative (Negative); Urine Bilirubin Dipstick Negative (Negative); Urine Clarity Clear (Clear); Urine Urobilinogen Normal (Normal)
[2024-01-15 18:38] LABS: Bacteria 1+ /hpf (None Seen); Red Blood Cells-Urine 0-5 SEEN /hpf (0-5); Squamous Epithelial Cells - UA 0-5 SEEN /hpf (5-10); Transitional Epithelial - Ur 0-5 SEEN /hpf (0-5); White Blood Cells 0-5 SEEN /hpf (0-5)
[2024-01-15 18:52] VITALS: PULSE 70; RESP 14
== END 2024-01-15 20:20 | disposition home or self-care (01) ==
PROVIDERS: Emergency Provider Emergency Medicine; PCP Nurse Practitioner Family; Visit Provider Emergency Medicine
DX: R10.9 Unspecified abdominal pain (principal); R11.2 Nausea with vomiting, unspecified; F17.200 Nicotine dependence, unspecified, uncomplicated
CPT/HCPCS: 74176; 80048; 81001; 84703; 85025; 99284; A4216